=== PATIENT | female | born 1990 | race Caucasian/White ===

== ENCOUNTER 2017-03-07 17:20 | Outpatient (CLI) | payer MEDICAID ==
[~2017-03-07] VITALS: Ht 152.4 cm; Wt 81.3 kg
[~2017-03-07 17:20] MED LIST: PREN1TAB49
[2017-03-07 18:03] VITALS: Ht 152.4 cm; Wt 81.3 kg
[2017-03-07 18:04] VITALS: BP 95/45; PULSE 74; RESP 24
[2017-03-07 18:36] LABS: ADD SCAN DIFF NO
[2017-03-07 18:41] LABS: BASOPHILS % 0.3 % (0.0-2.0); EOSINOPHILS # 0.1 10^3/ul (0.0-0.5); EOSINOPHILS % 0.7 % (0.0-7.0); HEMATOCRIT 34.7 % (37.0-47.0); HEMOGLOBIN 11.8 g/dl (12.0-16.0); LYMPHOCYTES # 1.5 10^3/ul (0.8-2.9); LYMPHOCYTES % 13.1 % (15.0-51.0); MEAN CORPUSCULAR HEMOGLOBIN 28.9 pg (29.0-33.0); MEAN PLATELET VOLUME 10.6 fl (7.4-10.4); MONOCYTE # 0.4 10^3/ul (0.3-0.9); MONOCYTES % 3.9 % (0.0-11.0); NEUTROPHIL # 9.3 10^3/ul (1.6-7.5); NEUTROPHILS % 81.6 % (39.0-77.0); PLATELET COUNT 263 10^3/UL (140-415); RED BLOOD COUNT 4.08 10^6/ul (4.20-5.40); RED CELL DISTRIBUTION WIDTH 13.4 % (11.5-14.5); WHITE BLOOD COUNT 11.4 10^3/ul (4.8-10.8)
[2017-03-07 18:59] LABS: ALBUMIN 3.1 g/dl (3.3-4.9)
[2017-03-07 19:00] LABS: POTASSIUM 3.6 mmol/L (3.5-5.1)
[2017-03-07 19:02] LABS: ALBUMIN/GLOBULIN RATIO 0.88; BILIRUBIN,INDIRECT 0.1 mg/dl (0-1.1); BILIRUBIN,TOTAL 0.1 mg/dl (0.2-1.3); CALCIUM 8.3 mg/dl (8.4-10.2); CREATININE 0.39 mg/dl (0.44-1.00); TOTAL PROTEIN 6.6 g/dl (6.1-8.1)
--- NOTE | 2017-03-07 19:10 | RADRPT ---
PROCEDURE: US Abdomen Limited. CLINICAL INDICATION: Gallstones TECHNIQUE: Multiple real-time longitudinal and transverse images were acquired of the patient's [facility] abdomen and retroperitoneum utilizing a curved array transducer. COMPARISON: None FINDINGS: Pancreas: The pancreas is suboptimally visualized. Liver: The liver shows normal shape, parenchymal echogenicity and echotexture. The right hepatic lo be measures 17.8 cm craniocaudal, which is borderline enlarged. There is no definite focal lesion vi sualized in the liver. Bile ducts: The intrahepatic bile ducts are not dilated. Common bile duct measures 2.[address], within normal limits. Gallbladder: There are a few gallstones within the gallbladder neck with posterior shadowing. Ther e is no gallbladder wall thickening, pericholecystic fluid, or sonographic Jones's sign. Kidneys: The right kidney measures 12.1 cm in length. The parenchymal echogenicity and thickness ap pear within normal range. No focal lesions are visualized. No hydronephrosis. There is no ascites visualized in the right abdomen. RPTAT: ZZ IMPRESSION: Cholelithiasis with a few gallstones within the gallbladder neck. .Federica Oakes MD, Date Time Electronically viewed and signed by .Federica Oakes MD, on 03/07/2017 19:09 .T/
--- NOTE | 2017-03-07 21:00 | QN ---
Documentation Comment OB Triage- Laborist Pt is a 26yo at 24+2 presenting with c/o epigastric pain radiating to back and N/V x2 starting at 0330. Pt reports eating tamales with cheese for dinner last night. Reports normal FM, denies LOF, VB or UCs. Pt states this is her third episode of gallbladder pain during this . States pain has resolved now. O: VS 98.9 95/45 74 24 FHT: 150s, AGA [place]: acontractile Gen: well appearing, NAD Abd: soft, NTND PROCEDURE: US Abdomen Limited. CLINICAL INDICATION: Gallstones TECHNIQUE: Multiple real-time longitudinal and transverse images were acquired of the patient's right abdomen and retroperitoneum utilizing a curved array transducer. COMPARISON: None FINDINGS: Pancreas: The pancreas is suboptimally visualized. Liver: The liver shows normal shape, parenchymal echogenicity and echotexture. The right hepatic lobe measures 17.8 cm craniocaudal, which is borderline enlarged. There is no definite focal lesion visualized in the liver. Bile ducts: The intrahepatic bile ducts are not dilated. Common bile duct measures 2.5 mm in diameter, within normal limits. Gallbladder: There are a few gallstones within the gallbladder neck with posterior shadowing. There is no gallbladder wall thickening, pericholecystic fluid, or sonographic Jones's sign. Kidneys: The right kidney measures 12.1 cm in length. The parenchymal echogenicity and thickness appear within normal range. No focal lesions are visualized. No hydronephrosis. There is no ascites visualized in the right abdomen. RPTAT: ZZ IMPRESSION: Cholelithiasis with a few gallstones within the gallbladder neck. Assessment: Cholelithiasis w/o e/o acute cholecystitis Spontaneously resolved pain Mildly elevated LFTs Reassuring FWB Plan: Discussed dietary modifications, including low fat diet. Recommend pt have LFTs repeated in clinic (note given to pt to give to clinic provider with results of LFTs today and request for repeat labs) Pain, PTL and ROM precautions discussed with the patient. Pt stable for discharge home. Encourage f/up as scheduled on 03/09/17. Questions answered to patient's satisfaction. JAYDEN ALBERTS MD March 07, 2017 21:00
--- NOTE | 2017-03-07 23:52 | TRIAGE ---
OB Triage Datetime Report Generated by CPN: 03/07/2017 23:52 Datetime: 03/07/2017 21:00 Stage of : OB Triage Datetime: 03/07/2017 20:37 Labor Evaluation Frequency: 1/HR Monitor Mode: External Duration (sec)2399: 60 Quality: Mild Pattern: Normal: <= 5 Contractions in 10 Minutes Resting Tone [place]: Relaxed Heart Rate FHR Baseline Rate: 135 Monitor Mode: External US FHR Baseline Changes: No Baseline Change Variability: Moderate 6-25 bpm Accelerations: 15X15 Decelerations: None Category: Category I Datetime: 03/07/2017 20:00 Labor Evaluation Frequency: IRREGULAR Duration (sec)2399: 40-60 Heart Rate FHR Baseline Rate: 145 FHR Baseline Changes: No Baseline Change Variability: Moderate 6-25 bpm Accelerations: 15X15 Decelerations: None Category: Category II Comments: APPROPRIATE FOR GESTATIONAL AGE Datetime: 03/07/2017 19:56 Assessment Type: Ongoing Assessment Maternal Assessment Level of Consciousness: Fully Conscious DTR's/Clonus: DTRs 2+; No Clonus Headache: Denies Blurred Vision: No Respiratory Effort: Unlabored; Regular Rhythm; Equal Expansion Breath Sounds, Left: Clear and Equal Breath Sounds, Right: Clear and Equal Nausea/Vomiting: Denies RUQ Epigastric Pain: Denies Facial Edema: None Fall Risk Assessment History of Falling: (0) No Secondary Diagnosis: (0) No Ambulatory Aid: (0) Bedrest/Nurse Assist IV Therapy: (0) No Gait: (0) Normal/Bedrest/Immobile Mental Status: (0) Oriented to Own Ability Fall Score: 0 Fall Risk Score Definition: No Risk: No action required Datetime: 03/07/2017 19:27 Stage of : OB Triage Datetime: 03/07/2017 19:09 EGA: 24.3 Datetime: 03/07/2017 18:48 Labor Evaluation Frequency: IRRITABILITY Monitor Mode: External US FHR Baseline Changes: No Baseline Change Variability: Minimal - Undetectable to <=5 bpm Decelerations: None Comments: APPROPRIATE FOR GEST AGE Pain Assessment Pain Scale: 6 Pain Presence: Constant Pain Type: Ache Pain Assessment Comments: PAIN IN UPPER RIGHT QUADRANT Vaginal Exam Membrane Status: Intact Datetime: 03/07/2017 18:12 Time of Arrival: 03/07/2017 17:15 Arrived By: Ambulatory Arrived From: Home Chief Complaint: RIGHT UPPER QUADRANT PAIN AND VOMITING Movement: Present Contractions: Denies/Absent Rupture of Membranes: Denies Vaginal Bleeding: None Vaginal Discharge: Denies Recent Sexual Intercouse: Denies Abdominal Trauma: Not Applicable Patient Complaints: Other Time Provider Notified: 03/07/2017 17:30 Provider Notified: DR LOCKWOOD Initial Plan: EF,,CALL DR LOCKWOOD Datetime: 03/07/2017 18:07 Maternal Assessment Level of Consciousness: Fully Conscious DTR's/Clonus: DTRs 2+ Headache: Denies Blurred Vision: No Nausea/Vomiting: Denies RUQ Epigastric Pain: Denies Facial Edema: None Heart Rate FHR Baseline Rate: 150 Monitor Mode: External US FHR Baseline Changes: No Baseline Change Variability: Moderate 6-25 bpm Decelerations: None Comments: APPROPRIATE FOR GEST AGE Pain Assessment Pain Scale: 8 Pain Presence: Constant Pain Type: Pressure Pain Assessment Comments: RIGHT UPPER QUADRANT PAIN Vaginal Exam Membrane Status: Intact
== END 2017-03-07 21:00 | disposition home or self-care (01) ==
LOC: OBT 17:20 → L-D 17:25 → OBT 21:00
PROVIDERS: ATTEND Obstetrics & Gynecology
DX: O26.612 Liver and biliary tract disorders in pregnancy, second trimester (principal); Z3A.24 24 weeks gestation of pregnancy
CPT/HCPCS: 76705; 80053; 82150; 83690; 85025

== ENCOUNTER 2017-03-29 06:00 | Outpatient (CLI) | payer MEDICAID ==
[~2017-03-29] VITALS: Ht 157.5 cm; Wt 78.2 kg
[2017-03-29 06:32] VITALS: Ht 157.5 cm; Wt 78.2 kg
[2017-03-29 06:34] VITALS: BP 93/50; PULSE 68; RESP 18
[2017-03-29] MEDS ORDERED: ONDANSETRON 4 MG INJ IV STA (06:45)
[2017-03-29] MEDS ORDERED: HYDROmorphONE 1 MG/ML SYG IV PRN (07:00)
[2017-03-29] MEDS ORDERED: TERBUTALINE 1 MG/ML INJ SC PRN (07:00)
[2017-03-29] MEDS ORDERED: LACTATED RINGER'S 1,000 ML IV ONE (07:00)
--- NOTE | 2017-03-29 07:57 | RADRPT ---
PROCEDURE: US Abdomen (right upper quadrant). CLINICAL INDICATION: Abdominal pain. TECHNIQUE: Multiple real-time longitudinal and transverse images of the right upper quadrant of th e abdomen were acquired utilizing a curved array transducer. Images were reviewed on a high-resoluti on PACS workstation. COMPARISON: None FINDINGS: The liver is normal in size and demonstrates normal echogenicity. No focal intrahepatic mass is id entified. The gallbladder contains stones. There is no pericholecystic fluid or gallbladder wall t hickening. No intra or extrahepatic biliary dilatation is seen. The common bile duct measures 4.8 m m in maximal dimension. The portal and hepatic veins are patent demonstrating normal directional litzy w. The visualized portions of the pancreas are unremarkable with obscuration of the tail of the panc reas. No free fluid is identified. The right kidney measures cm in length. There is normal echogenicity within the right kidney. The re is no perinephric fluid collection. No hydronephrosis, mass, or calculus is seen. IMPRESSION: Cholelithiasis. Otherwise, unremarkable right upper quadrant ultrasound. RPTAT: HH .Basilia Romero MD, MD Date Time Electronically viewed and signed by .Basilia Romero MD, on 03/29/2017 07:56 .G/
[2017-03-29 08:33] LABS: ADD SCAN DIFF NO
[2017-03-29 08:36] LABS: BASOPHILS % 0.2 % (0.0-2.0); EOSINOPHILS % 0.2 % (0.0-7.0); HEMATOCRIT 34.3 % (37.0-47.0); HEMOGLOBIN 11.7 g/dl (12.0-16.0); LYMPHOCYTES # 1.3 10^3/ul (0.8-2.9); LYMPHOCYTES % 9.6 % (15.0-51.0); MEAN CORPUSCULAR HEMOGLOBIN 28.7 pg (29.0-33.0); MEAN CORPUSCULAR HGB CONC 34.1 g/dl (32.0-37.0); MEAN CORPUSCULAR VOLUME 84.3 fl (82.0-101.0); MEAN PLATELET VOLUME 10.8 fl (7.4-10.4); MONOCYTE # 0.5 10^3/ul (0.3-0.9); NEUTROPHIL # 11.2 10^3/ul (1.6-7.5); NEUTROPHILS % 85.3 % (39.0-77.0); PLATELET COUNT 255 10^3/UL (140-415); RED BLOOD COUNT 4.07 10^6/ul (4.20-5.40); RED CELL DISTRIBUTION WIDTH 13.2 % (11.5-14.5); WHITE BLOOD COUNT 13.1 10^3/ul (4.8-10.8)
[2017-03-29 08:59] LABS: ALBUMIN 3.7 g/dl (3.3-4.9); ALBUMIN/GLOBULIN RATIO 1.32; BILIRUBIN,INDIRECT 0.2 mg/dl (0-1.1); BILIRUBIN,TOTAL 0.2 mg/dl (0.2-1.3); CALCIUM 8.5 mg/dl (8.4-10.2); CREATININE 0.42 mg/dl (0.44-1.00); TOTAL PROTEIN 6.5 g/dl (6.1-8.1)
[2017-03-29 09:44] LABS: URINE BLOOD (Dip) POC Negative (NEGATIVE)
--- NOTE | 2017-03-29 12:21 | TRIAGE ---
OB Triage Datetime Report Generated by CPN: 03/29/2017 12:21 Datetime: 03/29/2017 11:39 Labor Evaluation Frequency: 0 Monitor Mode: External Pattern: Normal: <= 5 Contractions in 10 Minutes Resting Tone [place]: Non Relaxed Heart Rate FHR Baseline Rate: 135 Monitor Mode: External US FHR Baseline Changes: No Baseline Change Variability: Moderate 6-25 bpm Accelerations: 15X15 Decelerations: Variable Comments: NORMAL FOR GESTATIONAL AGE Pain Assessment Pain Scale: 0 Pain Presence: None/Denies Pain Type: N/A Datetime: 03/29/2017 10:16 Comments: MOVEMENT Datetime: 03/29/2017 10:14 Comments: MOVEMENT Datetime: 03/29/2017 10:10 Comments: MOVEMENT Datetime: 03/29/2017 10:07 Monitor Mode: External US Comments: MOVEMENT Datetime: 03/29/2017 10:06 Comments: MOVEMENT Datetime: 03/29/2017 10:02 Labor Evaluation Frequency: x4 Monitor Mode: External Duration (sec)2399: 40-60 Quality: Mild Resting Tone [place]: Relaxed Heart Rate FHR Baseline Rate: 135 FHR Baseline Changes: No Baseline Change Variability: Moderate 6-25 bpm Accelerations: 15X15 Decelerations: Variable Comments: NORMAL FOR EGA Datetime: 03/29/2017 09:21 Pain Assessment Pain Scale: 2 Pain Presence: Constant Pain Type: Stabbing; Pressure Pain Location: Abdomen; Back Pain Assessment Comments: PT REPORTS PAIN IS DECREASING Datetime: 03/29/2017 09:01 Labor Evaluation Frequency: 2-13 Monitor Mode: External Duration (sec)2399: 40-60 Quality: Moderate Resting Tone [place]: Relaxed Contraction Comments: OCC IRRITABILITIES Heart Rate FHR Baseline Rate: 135 Monitor Mode: External US FHR Baseline Changes: No Baseline Change Variability: Moderate 6-25 bpm Accelerations: 15X15 Decelerations: None Category: Category I Datetime: 03/29/2017 08:55 Pain Assessment Pain Scale: 3 Pain Presence: Intermittent Pain Type: Stabbing; Pressure Pain Location: Abdomen Datetime: 03/29/2017 08:03 Assessment Type: Triage Datetime: 03/29/2017 08:01 Labor Evaluation Frequency: x3 Monitor Mode: External Duration (sec)2399: 60 Quality: Mild Resting Tone [place]: Relaxed Heart Rate FHR Baseline Rate: 135 Monitor Mode: External US FHR Baseline Changes: No Baseline Change Variability: Moderate 6-25 bpm Accelerations: 15X15 Decelerations: None Datetime: 03/29/2017 07:35 Monitor Mode: External Contraction Comments: TOCO REAPPLIED POST ULTRASOUND Monitor Mode: External US Comments: FHT MONITOR REAPPLIED POST ULTRASOUND Datetime: 03/29/2017 06:16 Time of Arrival: 03/29/2017 05:57 EGA: 27.4 Arrived By: Wheelchair Arrived From: Home Chief Complaint: Upper abominal pain Movement: Present Contractions: Denies/Absent Rupture of Membranes: Denies Vaginal Bleeding: None Vaginal Discharge: Denies Recent Sexual Intercouse: Denies Abdominal Trauma: Not Applicable Patient Complaints: Back Pain; Nausea; Vomiting; Other Additional Patient Complaints: Back pain and nausea and vomiting Time Provider Notified: 03/29/2017 06:36 Provider Notified: Dr. Hairston Initial Plan: EFM Datetime: 03/29/2017 06:15 Stage of : OB Triage Assessment Type: Triage Maternal Assessment Level of Consciousness: Fully Conscious DTR's/Clonus: DTRs 2+; No Clonus Headache: Denies Blurred Vision: No Respiratory Effort: Unlabored; Regular Rhythm; Equal Expansion Breath Sounds, Left: Clear and Equal Breath Sounds, Right: Clear and Equal Nausea/Vomiting: Present RUQ Epigastric Pain: Denies Lower Extremities Edema: None Degree: None Upper Extremities Edema: None Degree: None Facial Edema: None Temperature Route: Oral Fall Risk Assessment History of Falling: (0) No Secondary Diagnosis: (0) No Ambulatory Aid: (0) Bedrest/Nurse Assist IV Therapy: (0) No Gait: (0) Normal/Bedrest/Immobile Mental Status: (0) Oriented to Own Ability Fall Score: 0 Fall Risk Score Definition: No Risk: No action required Pain Assessment Pain Scale: 9 Pain Presence: Constant Pain Type: Sharp Pain Location: Abdomen; Back (Annotations: Upper back and upper abdomen) Datetime: 03/29/2017 06:12 Monitor Mode: External (Annotations: Applied) Monitor Mode: External US (Annotations: Applied) Datetime: 03/07/2017 19:56 Fall Score: 0 Fall Risk Score Definition: No Risk: No action required Datetime: 03/07/2017 19:09 EGA: 24.3
--- NOTE | 2017-03-29 12:34 | CONS ---
Date/Time of Note Date/Time of Note DATE: 03/29/17 TIME: 12:22 Consultation Date/Type/Reason Admit Date/Time March 29, 2017 OB triage consult Reason for Consultation This patient is a 26 years old 2 para 1 with estimated date of confinement of June 24, 2017 which makes her 27 weeks and 4 days today She has history of gallstone. Came into triage area complaining of abdominal pain and possible contractions Her past delivery was spontaneous vaginal on her examination: her general vital signs were within normal: blood pressure of 93/50, pulse rate 60, respiration 18, temperature 98.2. Laboratory Tests Test 03/29/17 08:03 03/29/17 09:48 White Blood Count 13.110^3/ul Red Blood Count 4.0710^6/ul Hemoglobin 11.7g/dl Hematocrit 34.3% Mean Corpuscular Volume 84.3fl Mean Corpuscular Hemoglobin 28.7pg Mean Corpuscular Hemoglobin Concent 34.1g/dl Red Cell Distribution Width 13.2% Platelet Count 42648^3/UL Mean Platelet Volume 10.8fl Neutrophils % 85.3% Lymphocytes % 9.6% Monocytes % 4.0% Eosinophils % 0.2% Basophils % 0.2% Nucleated Red Blood Cells % 0.0/100WBC Neutrophils # 11.210^3/ul Lymphocytes # 1.310^3/ul Monocytes # 0.510^3/ul Eosinophils # 0.010^3/ul Basophils # 0.010^3/ul Nucleated Red Blood Cells # 0.010^3/ul Sodium Level 135mmol/L Potassium Level 4.0mmol/L Chloride Level 106mmol/L Carbon Dioxide Level 23mmol/L Anion Gap 10 Blood Urea Nitrogen 6mg/dl Creatinine 0.42mg/dl Glucose Level 114mg/dl Calcium Level 8.5mg/dl Total Bilirubin 0.2mg/dl Direct Bilirubin 0.00mg/dl Indirect Bilirubin 0.2mg/dl Aspartate Amino Transf (AST/SGOT) 64IU/L Alanine Aminotransferase (ALT/SGPT) 36IU/L Alkaline Phosphatase 98IU/L Total Protein 6.5g/dl Albumin 3.7g/dl Globulin 2.80g/dl Albumin/Globulin Ratio 1.32 Bedside Urine pH (LAB) 8.5 Bedside Urine Protein (LAB) 1+ Bedside Urine Glucose (UA) Negative Bedside Urine Ketones (LAB) Negative Bedside Urine Blood Negative Bedside Urine Nitrite (LAB) Negative Bedside Urine Leukocyte Esterase (L Negative Current Medications Medications (Trade) Dose Ordered Sig/Alan Route PRN Reason Start Time Stop Time Status Last Admin Dose Admin Terbutaline Sulfate (Brethine) 0.25 mg PRN PRN SC Contractions 03/29/17 07:00 03/29/17 10:08 0.25 MG Hydromorphone HCl (Dilaudid) 0.2 mg PRN PRN IV PAIN 03/29/17 07:00 Ondansetron HCl 4 mg 4 mg ONCE STAT IV 03/29/17 06:45 03/29/17 06:58 DC 03/29/17 08:07 4 MG Lactated Ringer's (Lr) 1,000 ml @ 1,000 mls/hr Q1H ONCE IV 03/29/17 07:00 03/29/17 07:59 DC 03/29/17 07:49 1,000 MLS/HR Constitutional: other (No upper or right or left abdominal tenderness), No chills, No diaphoresis, No disoriented, No febrile, No improved, No no complaints, No poor po, No requiring IVF, No requiring O2 Eyes: No discharge, No no complaints, No other, No pain, No redness, No visual change ENT: No bleeding, No congestion, No discharge, No dysphagia, No no complaints, No other, No pain, No sore throat Respiratory: No cough, No no complaints, No other, No pain, No pleuritic pain, No shortness of breath, No sputum, No wheezing Cardiovascular: No chest pain, No edema, No lightheadedness, No no complaints, No orthopenea, No other, No palpitations, No paroxysmal nocturnal dyspnea Gastrointestinal: other (No nausea or vomiting), No blood, No constipation, No decreased appetite, No diarrhea, No flatus, No nausea, No no complaints, No pain, No passing stool, No vomiting Genitourinary: other (No CVA tenderness no dysuria), No bleeding, No discharge, No dysuria, No flank pain, No hematuria, No no complaints Musculoskeletal: No back pain, No bone/joint pain, No neck pain, No no complaints, No other, No restricted range of motion, No swelling Skin: No bruising, No erythema, No laceration, No no complaints, No other, No pruritis, No rash, No skin lesions Neurologic: No confusion, No dizziness, No focal-weakness, No headache, No no complaints, No other, No seizure, No syncope Endocrine: No dry skin, No no complaints, No other, No polydypsia, No polyuria , No temp intolerance Additional Comments On laboratory studies; her urinalysis was normal except for 1+ protein. The liver function tests and electrolytes were basically normal except for some what elevated AST of 64 Electrolytes were within normal. Her CBC was normal with exception for slight anemia; hemoglobin is 11.7 hematocrit 34.3 WBC was 13.1 . Abdominal ultrasound study ;the liver and portion of the pancreas that was visible were normal no focal intrahepatic mass was identified the gallbladder contains stones. No pericolic cystic fluid or gallbladder wall thickening the kidneys were normal Due to the fact that the patient is complaining of nausea she was given Zofran and for her pain she received Dilaudid 0.2 mg she was having contractions so IV hydration was given as well as terbutaline .In an hour the contractions came under control,and she no longer had pain . Finally patient was discharged home with instruction to rest at home and to return to the clinic in 1 week. Social History Smoking Status: Never smoker Exam/Review of Systems Vital Signs Vitals Vital Signs Date Time Temp Pulse Resp B/P Pulse Ox O2 Delivery O2 Flow Rate FiO2 03/29/17 06:34 98.2 68 18 93/50 Room Air Results Result Diagram: 03/29/17 0803 03/29/17 0803 Results 24 hrs Laboratory Tests Test 03/29/17 08:03 03/29/17 09:48 White Blood Count 13.1 H Red Blood Count 4.07 L Hemoglobin 11.7 L Hematocrit 34.3 L Mean Corpuscular Volume 84.3 Mean Corpuscular Hemoglobin 28.7 L Mean Corpuscular Hemoglobin Concent 34.1 Red Cell Distribution Width 13.2 Platelet Count 255 Mean Platelet Volume 10.8 H Neutrophils % 85.3 H Lymphocytes % 9.6 L Monocytes % 4.0 Eosinophils % 0.2 Basophils % 0.2 Nucleated Red Blood Cells % 0.0 Neutrophils # 11.2 H Lymphocytes # 1.3 Monocytes # 0.5 Eosinophils # 0.0 Basophils # 0.0 Nucleated Red Blood Cells # 0.0 Sodium Level 135 Potassium Level 4.0 Chloride Level 106 Carbon Dioxide Level 23 Anion Gap 10 Blood Urea Nitrogen 6 L Creatinine 0.42 L Glucose Level 114 Calcium Level 8.5 Total Bilirubin 0.2 Direct Bilirubin 0.00 Indirect Bilirubin 0.2 Aspartate Amino Transf (AST/SGOT) 64 H Alanine Aminotransferase (ALT/SGPT) 36 Alkaline Phosphatase 98 Total Protein 6.5 Albumin 3.7 Globulin 2.80 Albumin/Globulin Ratio 1.32 Bedside Urine pH (LAB) 8.5 Bedside Urine Protein (LAB) 1+ H Bedside Urine Glucose (UA) Negative Bedside Urine Ketones (LAB) Negative Bedside Urine Blood Negative Bedside Urine Nitrite (LAB) Negative Bedside Urine Leukocyte Esterase (L Negative Medications Medications Current Medications Terbutaline Sulfate (Brethine) 0.25 mg PRN PRN SC Contractions Last administered on 03/29/17t 10:08; Admin Dose 0.25 MG; Start 03/29/17 at 07:00 Hydromorphone HCl (Dilaudid) 0.2 mg PRN PRN IV PAIN; Start 03/29/17 at 07:00 DARIAN MCCARTHY MD Mar 29, 2017 12:34
== END 2017-03-29 11:55 | disposition home or self-care (01) ==
LOC: OBT 06:00 → L-D 06:00 → OBT 11:55
PROVIDERS: ATTEND Obstetrics & Gynecology
DX: O26.892 Other specified pregnancy related conditions, second trimester (principal); R10.9 Unspecified abdominal pain; Z87.19 Personal history of other diseases of the digestive system
CPT/HCPCS: 76705; 80053; 81003; 85025; J2405; J3105; J7120; J1170

== ENCOUNTER 2017-03-29 23:27 | Outpatient (CLI) | payer MEDICAID ==
[~2017-03-29] VITALS: Ht 152.4 cm; Wt 82.0 kg
[2017-03-30 00:05] VITALS: Ht 152.4 cm; Wt 82.0 kg
[2017-03-30 00:06] VITALS: BP 93/51; PULSE 78; RESP 18
[2017-03-30] MEDS ORDERED: LACTATED RINGER'S 1,000 ML IV SCH (00:39)
[2017-03-30] MEDS ORDERED: ONDANSETRON 4 MG INJ IV PRN (01:00)
--- NOTE | 2017-03-30 02:50 | PN ---
Triage Information Date/Time 03/29/17 at 23: 45 Weeks of Gestation 27 5/7 weeks : 2 Para: 1 Diabetes: none Hypertention: none Additional information 26 Year-old [id number] SIUP at 27 5/7 weeks presents with a chief complaint of vomiting x5, she was seen in triage today, received IVF and zofran, then discharge home in stable condition. She has been receiving her care with Dr. Patiño. She states good movement. She denies shortness of breath, chest pain, headache, visual changes, vaginal bleeding or LOF. Physical Exam: General: Patient appears well, alert and oriented, NAD, appropriate mood and affect ABD: gravid, soft, non-tender. Back: No CVA tenderness (B/L) LE: No clubbing, cyanosis, edema, thigh or calf tenderness bilaterally FHT: 135 bpm , moderate variability with acceleration, no deceleration-category I Contractions: None Objective Vital Signs Date Time Temp Pulse Resp B/P Pulse Ox O2 Delivery O2 Flow Rate FiO2 03/30/17 00:06 99.0 78 18 93/51 Heart Rate: 140's Contractions: None Results/Medications Results 24 hrs Nml CBC, CMP Medications Current Medications Lactated Ringer's (Lr) 1,000 ml @ 125 mls/hr Q8H IV Last administered on 01:06; Admin Dose 125 MLS/HR; Start 03/30/17 at 00:39 Ondansetron HCl (Zofran Inj) 4 mg ONCE PRN IV NAUSEA AND/OR VOMITING Last administered on 03/30/17 01:09; Admin Dose 4 MG; Start 03/30/17 at 01:00; Stop 03/30/17 at 12:00 Assessment/Plan 26 Year-old [id number] SIUP at 27 5/7 weeks with vomiting. - FHR: No sign of metabolic acidosis- Category I - Continuous EFM, toco - Contractions: None. - Reactive NST - She received IVF, zofran, felt much better. No further vomiting, tolerated the clear diet - Symptoms and sign of labor, preeclampsia, kick count discussed with patient, she voiced understanding. All of her questions answered. - Patient was discharged home in stable condition with the appropriate discharge instructions provided. I would like patient to have close follow-up with her primary physician or outpatient clinic in 1-2 days or return to the ER for worsening symptoms or any other urgent concerns. DARIUS LAKE Mar 30, 2017 02:50
--- NOTE | 2017-03-30 06:42 | TRIAGE ---
OB Triage Datetime Report Generated by CPN: 03/30/2017 06:42 Datetime: 03/30/2017 02:00 Labor Evaluation Frequency: 0 Monitor Mode: External Heart Rate FHR Baseline Rate: 135 Monitor Mode: External US FHR Baseline Changes: No Baseline Change Variability: Moderate 6-25 bpm Accelerations: 15X15 Decelerations: None Category: Category I Datetime: 03/30/2017 01:30 Accelerations: 15X15 Category: Category I Datetime: 03/30/2017 01:17 Heart Rate FHR Baseline Rate: 145 FHR Baseline Changes: No Baseline Change Variability: Moderate 6-25 bpm Decelerations: None Datetime: 03/30/2017 00:20 Labor Evaluation Frequency: 0 Monitor Mode: External Heart Rate FHR Baseline Rate: 145 Monitor Mode: External US FHR Baseline Changes: No Baseline Change Variability: Moderate 6-25 bpm Accelerations: 15X15 Decelerations: None Category: Category I Datetime: 03/29/2017 23:51 Stage of : OB Triage Assessment Type: Triage Time of Arrival: 03/29/2017 23:20 EGA: 27.4 Arrived By: Wheelchair Arrived From: Home Chief Complaint: EPIGASTRIC PAIN 2139 Movement: Present Rupture of Membranes: Denies Vaginal Bleeding: None Vaginal Discharge: Denies Recent Sexual Intercouse: Denies Abdominal Trauma: Not Applicable Patient Complaints: None Provider Notified: DR LAKE Initial Plan: CALL MD, EFM Maternal Assessment Level of Consciousness: Fully Conscious DTR's/Clonus: DTRs 2+; No Clonus Headache: Denies Blurred Vision: No Respiratory Effort: Unlabored; Regular Rhythm; Equal Expansion Breath Sounds, Left: Clear and Equal Breath Sounds, Right: Clear and Equal Nausea/Vomiting: Denies RUQ Epigastric Pain: Denies Lower Extremities Edema: None Degree: None Upper Extremities Edema: None Degree: None Facial Edema: None Temperature Route: Oral Fall Risk Assessment History of Falling: (0) No Secondary Diagnosis: (0) No Ambulatory Aid: (0) Bedrest/Nurse Assist IV Therapy: (0) No Gait: (0) Normal/Bedrest/Immobile Mental Status: (0) Oriented to Own Ability Fall Score: 0 Fall Risk Score Definition: No Risk: No action required Monitor Mode: External Monitor Mode: External US Pain Assessment Pain Scale: 10 Pain Presence: Intermittent Pain Type: Burning Pain Location: Back; Sternum Datetime: 03/29/2017 06:16 EGA: 27.4 Datetime: 03/29/2017 06:15 Fall Score: 0 Fall Risk Score Definition: No Risk: No action required Datetime: 03/07/2017 19:56 Fall Score: 0 Fall Risk Score Definition: No Risk: No action required Datetime: 03/07/2017 19:09 EGA: 24.3
== END 2017-03-30 02:12 | disposition home or self-care (01) ==
LOC: L-D 23:27 → OBT 23:27
PROVIDERS: ATTEND Obstetrics & Gynecology
DX: O21.2 Late vomiting of pregnancy (principal); Z3A.27 27 weeks gestation of pregnancy
CPT/HCPCS: 36415; J2405; J7120; Z7500; G0463

== ENCOUNTER 2017-04-14 03:12 | Outpatient (CLI) | payer MEDICAID ==
[~2017-04-14] VITALS: Ht 151.1 cm; Wt 82.6 kg
[2017-04-14 03:33] VITALS: BP 104/65; PULSE 18; RESP 18; Ht 151.1 cm; Wt 82.6 kg
[2017-04-14] MEDS ORDERED: LACTATED RINGER'S 1,000 ML IV ONE (04:30)
[2017-04-14] MEDS ORDERED: TERBUTALINE 1 ML ONE (04:34)
[2017-04-14] MEDS: TERBUTALINE 1 MG/ML INJ SC PRN ×2 (04:36→05:59)
--- NOTE | 2017-04-14 05:20 | RADRPT ---
PROCEDURE: Biophysical profile. CLINICAL INDICATION: Pelvic pain. TECHNIQUE: Multiple sonographic images of the pelvis were obtained with transabdominal technique. Endovaginal evaluation of the cervix was also performed. COMPARISON: No prior studies are available for comparison. FINDINGS: There is a single living intrauterine gestation with the fetus in a variable and vertex position. T he placenta is anterior in location, grade 1. heart tones of 150 beats per minute are identifi ed. There is normal amniotic fluid volume with an LAWSON of 18.1 cm. The cervix is closed measuring 4. 2 cm. breathing movements = 2 Gross body movements = 2 tone = 2 Qualitative AFV = 2 IMPRESSION: Biophysical profile 8 out of 8. .Lester Anderson MD, Date Time Electronically viewed and signed by .Lester Anderson MD, on 04/14/2017 05:20 .T/
[2017-04-14] MEDS ORDERED: LACTATED RINGER'S 1,000 ML IV SCH (05:30)
[2017-04-14 06:16] LABS: ADD UMIC YES; UR AMORPHOUS CRYSTAL FEW /HPF (NONE SEEN); UR ASCORBIC ACID NEGATIVE (NEGATIVE); UR BACTERIA FEW /HPF (NONE SEEN); UR BILIRUBIN (Dip) NEGATIVE (NEGATIVE); UR BLOOD (Dip) NEGATIVE (NEGATIVE); UR CLARITY TURBID (CLEAR); UR COLOR YELLOW (YELLOW); UR GLUCOSE (Dip) NEGATIVE (NEGATIVE); UR KETONES (Dip) NEGATIVE (NEGATIVE); UR LEUKOCYTE ESTERASE (Dip) TRACE Leu/ul (NEGATIVE); UR MUCUS FEW /HPF (NONE SEEN); UR NITRITE (Dip) NEGATIVE (NEGATIVE); UR RBC 2 /HPF (0-5); UR SPECIFIC GRAVITY (Dip) 1.017 (1.003-1.030); UR SQUAMOUS EPITHELIAL CELL FEW /HPF (FEW); UR TOTAL PROTEIN (Dip) NEGATIVE (NEGATIVE); UR UROBILINOGEN (Dip) NEGATIVE (NEGATIVE)
--- NOTE | 2017-04-14 06:27 | PN ---
Triage Information Date/Time Weeks of Gestation 29+ : 2 Para: 1 Diabetes: none Objective Vital Signs Date Time Temp Pulse Resp B/P Pulse Ox O2 Delivery O2 Flow Rate FiO2 04/14/17 03:33 98.7 18 18 104/65 Room Air Intake and Output 04/13/17 04/13/17 04/14/17 15:00 23:00 07:00 Intake Total 1000 ml Output Total 750 ml Balance 250 ml Heart Rate: 140's Exam CX wnl PAIN IMPROVED ctxS SUBSIDE NO COMPLAINS AT THIS TIME +FM -VB NO LOF Results/Medications Results 24 hrs Laboratory Tests Test 04/14/17 03:17 Urine Color YELLOW Urine Clarity TURBID A Urine pH 8.0 Urine Specific [place] 1.017 Urine Ketones NEGATIVE Urine Nitrite NEGATIVE Urine Bilirubin NEGATIVE Urine Urobilinogen NEGATIVE Urine Leukocyte Esterase TRACE A Urine Microscopic RBC 2 Urine Microscopic WBC 10 H Urine Squamous Epithelial Cells FEW Urine Amorphous Crystals FEW A Urine Bacteria FEW A Urine Mucus FEW A Urine Hemoglobin NEGATIVE Urine Glucose NEGATIVE Urine Total Protein NEGATIVE Medications Current Medications Lactated Ringer's (Lr) 1,000 ml @ 125 mls/hr Q8H IV Last administered on 05:59; Admin Dose 125 MLS/HR; Start 04/14/17 at 05:30 Terbutaline Sulfate (Brethine) 0.25 mg Q30MIN PRN SC UCS Last administered on 05:59; Admin Dose 0.25 MG; Start 04/14/17 at 04:30 Assessment/Plan discharged with precautions RTC in 2 days for nst CASTILLO Zuñiga M.D. Apr 14, 2017 06:27
--- NOTE | 2017-04-14 07:08 | TRIAGE ---
OB Triage Datetime Report Generated by CPN: 04/14/2017 07:08 Datetime: 04/14/2017 06:25 Stage of : OB Triage Datetime: 04/14/2017 06:22 Stage of : OB Triage Labor Evaluation Frequency: X3 Monitor Mode: External Duration (sec)2399: 40-50 Quality: Mild Resting Tone [place]: Relaxed Heart Rate FHR Baseline Rate: 140 Monitor Mode: External US Variability: Moderate 6-25 bpm Accelerations: 15X15 Decelerations: None Category: Category I Datetime: 04/14/2017 06:17 Monitor Mode: External US Datetime: 04/14/2017 06:12 Stage of : OB Triage Monitor Mode: External Monitor Mode: External US Datetime: 04/14/2017 05:30 Labor Evaluation Frequency: 0 Monitor Mode: External Resting Tone [place]: Relaxed Heart Rate FHR Baseline Rate: 135 Variability: Moderate 6-25 bpm Accelerations: 15X15 Comments: Appropriate for ga Pain Assessment Pain Scale: 0 Pain Presence: None/Denies Pain Type: N/A Datetime: 04/14/2017 04:54 Stage of : OB Triage Datetime: 04/14/2017 04:46 Stage of : OB Triage Datetime: 04/14/2017 04:30 Stage of : OB Triage Labor Evaluation Frequency: 2-9 Monitor Mode: External Duration (sec)2399: 40-50 Quality: Mild Resting Tone [place]: Relaxed Heart Rate FHR Baseline Rate: 135 Monitor Mode: External US Variability: Moderate 6-25 bpm Accelerations: 15X15 Decelerations: None Category: Category I Pain Assessment Pain Scale: 5 Pain Presence: Constant Pain Type: Sharp Pain Goal: 0 Pain Assessment Comments: URQ. Pt has hx of gallstones Datetime: 04/14/2017 04:23 Stage of : OB Triage Datetime: 04/14/2017 04:08 Stage of : OB Triage Datetime: 04/14/2017 03:51 Stage of : OB Triage Datetime: 04/14/2017 03:26 Stage of : OB Triage Datetime: 04/14/2017 03:24 Time of Arrival: 04/14/2017 03:10 EGA: 29.6 Arrived By: Wheelchair Arrived From: Home Chief Complaint: PT C/O RUQ AND BACK PAIN. Movement: Decreased Rupture of Membranes: Denies Vaginal Discharge: Denies Recent Sexual Intercouse: Denies Abdominal Trauma: Not Applicable Patient Complaints: Back Pain Additional Patient Complaints: Pt with hx of gallstones states she has same pain as when she was f irst diagnosed with gallstones, and states she ate fried chicken and cake last night. Initial Plan: VS, EFM, UA, BPP, CL, IV HYDRATION, TERB, LABORIST TO EVALFOR DC Datetime: 04/14/2017 03:20 Stage of : OB Triage Maternal Assessment Level of Consciousness: Fully Conscious DTR's/Clonus: DTRs 2+; No Clonus Headache: Denies Blurred Vision: No Respiratory Effort: Unlabored; Regular Rhythm; Equal Expansion Breath Sounds, Left: Clear and Equal Breath Sounds, Right: Clear and Equal Nausea/Vomiting: Denies RUQ Epigastric Pain: Denies Lower Extremities Edema: None Upper Extremities Edema: None Facial Edema: None Temperature Route: Oral Fall Risk Assessment History of Falling: (0) No Secondary Diagnosis: (0) No Ambulatory Aid: (0) Bedrest/Nurse Assist IV Therapy: (0) No Gait: (0) Normal/Bedrest/Immobile Mental Status: (0) Oriented to Own Ability Fall Score: 0 Fall Risk Score Definition: No Risk: No action required Labor Evaluation Frequency: X2 Monitor Mode: External Duration (sec)2399: 50-60 Quality: Mild Heart Rate FHR Baseline Rate: 135 Monitor Mode: External US Variability: Moderate 6-25 bpm Accelerations: 15X15 Decelerations: None Pain Assessment Pain Scale: 10 Pain Presence: Constant Pain Type: Pressure Pain Location: Abdomen Pain Goal: 3 Datetime: 04/14/2017 03:17 Monitor Mode: External Contraction Comments: APPLIED Monitor Mode: External US Comments: APPLIED Datetime: 03/29/2017 23:51 EGA: 27.4 Fall Score: 0 Fall Risk Score Definition: No Risk: No action required Datetime: 03/29/2017 06:16 EGA: 27.4 Datetime: 03/29/2017 06:15 Fall Score: 0 Fall Risk Score Definition: No Risk: No action required Datetime: 03/07/2017 19:56 Fall Score: 0 Fall Risk Score Definition: No Risk: No action required Datetime: 03/07/2017 19:09 EGA: 24.3
== END 2017-04-14 06:35 | disposition home or self-care (01) ==
LOC: OBT 03:12 → L-D 03:15 → OBT 06:35
PROVIDERS: ATTEND Obstetrics & Gynecology
DX: O26.893 Other specified pregnancy related conditions, third trimester (principal); Z3A.29 29 weeks gestation of pregnancy; R10.9 Unspecified abdominal pain
CPT/HCPCS: 36415; 76817; 76818; 81001; 96360; 96361; 96372; J3105; J7120; Z7500; G0463

== ENCOUNTER 2017-06-16 01:30 | Observation (INO) | payer MEDICAID ==
[2017-06-16] MEDS ORDERED: LACTATED RINGER'S 1,000 ML IV SCH ×2 (02:30→04:16)
--- NOTE | 2017-06-16 03:02 | RADRPT ---
PROCEDURE: Biophysical profile. CLINICAL INDICATION: Pelvic pain. TECHNIQUE: Multiple sonographic images of the pelvis were obtained with transabdominal technique. COMPARISON: 04/14/2017. FINDINGS: There is a single living intrauterine gestation with the fetus in a vertex position. The placenta i s anterior in location, grade II. heart tones of 139 beats per minute are identified. There i s normal amniotic fluid volume with an LAWSON of 10.3 cm. breathing movements = 2 Gross body movements = 2 tone = 2 Qualitative AFV = 2 IMPRESSION: Biophysical profile 8 out of 8. .Lester Anderson MD, Date Time Electronically viewed and signed by .Lester Anderson MD, on 06/16/2017 03:01 .T/
[2017-06-16] MEDS ORDERED: MINERAL OIL LIGHT 10 ML VIAL TOP ONE (04:30)
[2017-06-16] MEDS ORDERED: LIDOCAINE 1% (MPF) 30 ML INJ INJ PRN (04:30)
[2017-06-16] MEDS ORDERED: METHYLERGONOVINE 0.2 MG INJ IM PRN (04:30)
[2017-06-16] MEDS ORDERED: LACTATED RINGER'S 1,000 ML IV PRN (04:30)
[2017-06-16] MEDS ORDERED: BUTORPHANOL 2 MG INJ IV PRN (04:30)
[2017-06-16] MEDS ORDERED: IBUPROFEN 600 MG TAB PO PRN (04:30)
[2017-06-16] MEDS ORDERED: MISOPROSTOL 200 MCG TAB PR PRN (04:30)
[2017-06-16] MEDS ORDERED: OXYTOCIN 30 UNITS/LR 500 ML IV SCH ×2 (04:30)
[2017-06-16] MEDS ORDERED: OXYTOCIN 30 UNITS/LR 500 ML IV PRN (04:30)
[2017-06-16] MEDS ORDERED: CARBOPROST 250 MCG INJ IM PRN (04:30)
[2017-06-16] MEDS ORDERED: AMPICILLIN 2 GM/NS (PMX) 100 ML IV ONE (04:30)
[2017-06-16 04:34] LABS: INR 0.82; PROTIME 11.3 Sec (12.2-14.2); PT RATIO 0.9
[2017-06-16 04:35] LABS: PARTIAL THROMBOPLASTIN TIME 28.1 Sec (25.0-35.0)
[2017-06-16 05:07] LABS: BASOPHILS % 0.2 % (0.0-2.0); EOSINOPHILS # 0.3 10^3/ul (0.0-0.5); EOSINOPHILS % 2.6 % (0.0-7.0); HEMATOCRIT 32.7 % (37.0-47.0); LYMPHOCYTES # 2.3 10^3/ul (0.8-2.9); LYMPHOCYTES % 17.7 % (15.0-51.0); MEAN CORPUSCULAR HEMOGLOBIN 27.2 pg (29.0-33.0); MEAN CORPUSCULAR HGB CONC 33.6 g/dl (32.0-37.0); MEAN CORPUSCULAR VOLUME 80.9 fl (82.0-101.0); MEAN PLATELET VOLUME 11.4 fl (7.4-10.4); MONOCYTE # 0.6 10^3/ul (0.3-0.9); MONOCYTES % 4.3 % (0.0-11.0); NEUTROPHILS % 74.5 % (39.0-77.0); PLATELET COUNT 220 10^3/UL (140-415); RED BLOOD COUNT 4.04 10^6/ul (4.20-5.40); RED CELL DISTRIBUTION WIDTH 14.6 % (11.5-14.5); WHITE BLOOD COUNT 12.8 10^3/ul (4.8-10.8)
--- NOTE | 2017-06-16 05:53 | HP ---
Date/Time of Note Date/Time of Note DATE: 06/16/17 TIME: 05:42 OB - History Hx of Present Free Text/Dictation 26y.o at 38w6d with c/o uterine contractions q2-7min apart, with questionable leaks , c/o pain 8/10 VE closed /long /high BPP 8/8 LAWSON 10.3 oral hydration and IV hydration didn't relieve pain admit for augmentation to deliver. record is not available at present ampicillin started for unknown GBS coverage. Chief Complaint: uterine contractions Estimated Due Date: Jun 24, 2017 : 2 Para: 1 Spontaneous : 0 Therapeutic : 0 Care: Other Ultrasounds: Other Obstetrical Complications: None Medical Complications: None Past Family/Social History * Past Medical, Surgical, Family and Obstetric Histories reviewed from chart. Blood Type: Unknown Rubella: unknown RPR/VDRL: Unknown GBS Status: Unknown HBsAG: Unknown OB Admission Exam Physical Exam HEENT: WNL Heart: Rhythm Normal Lungs: Clear, Equal Abdomen: WNL Extremities: Normal Reflexes: Normal Cervical Dilatation: None Effacement: 0% Station: Ballot[place] Membranes: Intact Amniotic Fluid: Unevaluable Heart Rate: 140's Accelerations: Accelerations Present Decelerations: No Decelerations Varibility: Moderate Contractions on Admission: < 5 Minutes Apart Intensity: Mild Last 72 hours Lab Results CBC & BMP 06/16/17 02:30 OB Assessment/Plan Other Assessment: IUP 38w6d latent phase Plan: Other (augmentation) VIOLET LUNA MD Jun 16, 2017 05:52
[2017-06-16] MEDS ORDERED: AMPICILLIN 1 GM/NS (PMX) 50 ML IV SCH (08:30)
--- NOTE | 2017-06-16 14:01 | DS ---
Date/Time of Note Date/Time of Note DATE: 06/16/17 TIME: 13:56 Discharge Summary Admission/Discharge Info Admit Date/Time Jun 16, 2017 at 04:00 Discharge Date/Time June 16, 2017 at 1200 Discharge Diagnosis 38 weeks admitted to rule out labor no cervical changes during the course of observation patient discharged with the recommendation follow-up at the clinic he was given labor instructions voiced to return to the hospital tractions are regular and stronger, otherwise make appointment to be seen at the clinic on June 17. Patient Condition: Good Procedures Observation to rule out labor Hx of Present Illness 38 weeks admitted to rule out labor Hospital Course Satisfactory biophysical profile 05/18 bola 10.3 Home Meds No Active Prescriptions or Reported Meds Follow-up Plan Appointment clinic a.m. labor instructions given Primary Care Provider Care Physician No Primary Pending Labs Laboratory Tests Test 06/16/17 02:30 White Blood Count 12.810^3/ul (4.8-10.8) Red Blood Count 4.0410^6/ul (4.20-5.40) Hemoglobin 11.0g/dl (12.0-16.0) Hematocrit 32.7% (37.0-47.0) Mean Corpuscular Volume 80.9fl (82.0-101.0) Mean Corpuscular Hemoglobin 27.2pg (29.0-33.0) Mean Corpuscular Hemoglobin Concent 33.6g/dl (32.0-37.0) Red Cell Distribution Width 14.6% (11.5-14.5) Platelet Count 79918^3/UL (140-415) Mean Platelet Volume 11.4fl (7.4-10.4) Neutrophils % 74.5% (39.0-77.0) Lymphocytes % 17.7% (15.0-51.0) Monocytes % 4.3% (0.0-11.0) Eosinophils % 2.6% (0.0-7.0) Basophils % 0.2% (0.0-2.0) Nucleated Red Blood Cells % 0.0/100WBC (0.0-0.0) Neutrophils # (Manual) 9.510^3/ul (1.7-7.5) Lymphocytes # 2.310^3/ul (0.8-2.9) Monocytes # 0.610^3/ul (0.3-0.9) Eosinophils # 0.310^3/ul (0.0-0.5) Basophils # 0.010^3/ul (0.0-0.1) Nucleated Red Blood Cells # 0.010^3/ul (0.0-0.0) Prothrombin Time 11.3Sec (12.2-14.2) Prothrombin Time Ratio 0.9 INR International Normalized Ratio 0.82 Activated Partial Thromboplast Time 28.1Sec (25.0-35.0) Hepatitis B Surface Antigen NEGATIVE (NEGATIVE) SHLOMO AZEVEDO MD Jun 16, 2017 14:01
== END 2017-06-16 13:30 | disposition home or self-care (01) ==
LOC: OBT 01:30 → L-D 01:30 → INTOOBSV 04:00 → OBT 04:00
PROVIDERS: ADMIT Obstetrics & Gynecology; ATTEND Obstetrics & Gynecology
DX: O47.1 False labor at or after 37 completed weeks of gestation (principal); Z3A.38 38 weeks gestation of pregnancy
CPT/HCPCS: 36415; 76818; 85025; 85610; 85730; 86592; 86900; 86901; 87340; 96360; J0290; J7120; Z7500; 99217; G0378; G0463

== ENCOUNTER 2017-06-26 02:04 | Inpatient (IN) | payer MEDICAID ==
[~2017-06-26] VITALS: Ht 152.4 cm; Wt 94.4 kg
[2017-06-26] MEDS ORDERED: PRENAT PO (02:11)
[2017-06-26 02:12] VITALS: Ht 152.4 cm; Wt 94.4 kg
[2017-06-26 02:29] VITALS: BP 125/67; PULSE 75; RESP 18
[2017-06-26] MEDS: LACTATED RINGER'S 1,000 ML IV SCH ×3 (03:00→14:56)
[2017-06-26] MEDS ORDERED: LIDOCAINE 1% (MPF) 30 ML INJ INJ PRN (03:00)
[2017-06-26] MEDS ORDERED: CARBOPROST 250 MCG INJ IM PRN ×2 (03:00→19:00)
[2017-06-26] MEDS ORDERED: METHYLERGONOVINE 0.2 MG INJ IM PRN ×2 (03:00→19:00)
[2017-06-26] MEDS ORDERED: BUTORPHANOL 2 MG INJ IV PRN (03:00)
[2017-06-26] MEDS ORDERED: LACTATED RINGER'S 1,000 ML IV PRN (03:00)
[2017-06-26] MEDS ORDERED: OXYTOCIN 30 UNITS/LR 500 ML IV PRN ×2 (03:00→19:00)
[2017-06-26] MEDS ORDERED: MISOPROSTOL 200 MCG TAB PR PRN ×2 (03:00→19:00)
[2017-06-26] MEDS ORDERED: OXYTOCIN 30 UNITS/LR 500 ML IV SCH ×3 (03:00→11:20)
--- NOTE | 2017-06-26 04:16 | TRIAGE ---
OB Triage Datetime Report Generated by CPN: 06/26/2017 04:16 Datetime: 06/26/2017 04:00 Labor Evaluation Frequency: 2-5 Monitor Mode: External Duration (sec)2399: 40-120 Quality: Mild Pattern: Normal: <= 5 Contractions in 10 Minutes Resting Tone [place]: Relaxed Heart Rate FHR Baseline Rate: 135 Monitor Mode: External US Variability: Moderate 6-25 bpm Accelerations: 15X15 Decelerations: None Category: Category I Datetime: 06/26/2017 03:07 Assessment Type: Admission Assessment Vaginal Bleeding: Normal Show Maternal Assessment Level of Consciousness: Fully Conscious DTR's/Clonus: DTRs 2+; No Clonus Headache: Denies Blurred Vision: No Respiratory Effort: Unlabored; Regular Rhythm; Equal Expansion Breath Sounds, Left: Clear and Equal Breath Sounds, Right: Clear and Equal Nausea/Vomiting: Denies RUQ Epigastric Pain: Denies Lower Extremities Edema: Bilateral Lower Extremities Degree: Pitting Upper Extremities Edema: None Degree: None Facial Edema: None Fall Risk Assessment History of Falling: (0) No Secondary Diagnosis: (0) No Ambulatory Aid: (0) Bedrest/Nurse Assist IV Therapy: (0) No Gait: (0) Normal/Bedrest/Immobile Mental Status: (0) Oriented to Own Ability Fall Score: 0 Fall Risk Score Definition: No Risk: No action required Pain Assessment Pain Scale: 8 Pain Presence: Intermittent Pain Type: Contraction Pain Location: Abdomen Pain Goal: 2 Membrane Status: Intact Datetime: 06/26/2017 02:59 Labor Evaluation Frequency: 1.5-6 Monitor Mode: External Duration (sec)2399: 50-110 Quality: Moderate Pattern: Normal: <= 5 Contractions in 10 Minutes Resting Tone [place]: Relaxed Heart Rate FHR Baseline Rate: 135 Monitor Mode: External US FHR Baseline Changes: No Baseline Change Variability: Moderate 6-25 bpm Accelerations: 15X15 Decelerations: None Category: Category I Datetime: 06/26/2017 02:26 Vaginal Exam Dilatation (cms): 4.0 Effacement (%): 60 Station: -3 Exam By: KOMAL Field Vaginal Bleeding: Scant Cervix, Consistency: Moderate Cervix, Position: Posterior Datetime: 06/26/2017 02:22 Stage of : OB Triage Assessment Type: Triage Maternal Assessment Level of Consciousness: Fully Conscious DTR's/Clonus: DTRs 2+; No Clonus Headache: Denies Blurred Vision: No Respiratory Effort: Unlabored; Regular Rhythm; Equal Expansion Breath Sounds, Left: Clear and Equal Breath Sounds, Right: Clear and Equal Nausea/Vomiting: Denies RUQ Epigastric Pain: Denies Lower Extremities Edema: Bilateral Lower Extremities Degree: Pitting Upper Extremities Edema: None Degree: None Facial Edema: None Temperature Route: Oral Fall Risk Assessment History of Falling: (0) No Secondary Diagnosis: (0) No Ambulatory Aid: (0) Bedrest/Nurse Assist IV Therapy: (0) No Gait: (0) Normal/Bedrest/Immobile Mental Status: (0) Oriented to Own Ability Fall Score: 0 Fall Risk Score Definition: No Risk: No action required Pain Assessment Pain Scale: 8 Pain Presence: Intermittent Pain Type: Cramping; Contraction Pain Location: Abdomen Pain Relief Measures: Comfort Measures Datetime: 06/26/2017 02:20 Stage of : OB Triage Monitor Mode: External Contraction Comments: [place] applied Heart Rate FHR Baseline Rate: 135 Monitor Mode: External US Comments: EFM applied Datetime: 06/26/2017 02:18 Time of Arrival: 06/26/2017 01:57 EGA: 40.2 Arrived By: Wheelchair Arrived From: Home Chief Complaint: UCs q5mins Movement: Present Contractions: Regular Time Contractions Began: 06/26/2017 00:00 Contractions: q5mins Rupture of Membranes: Denies Vaginal Bleeding: Small Vaginal Discharge: Present Abdominal Trauma: Not Applicable Patient Complaints: Contractions; Cramping Time Provider Notified: 06/26/2017 02:35 Provider Notified: Initial Plan: EFM x2, VE Datetime: 06/16/2017 12:54 Comments: PATIENT OFF MONITOR Datetime: 06/16/2017 12:37 Comments: TUNRED TO RIGHT Datetime: 06/16/2017 12:06 Vaginal Exam Dilatation (cms): 2.0 Effacement (%): 70 Station: -2 Exam By: Spike GONZALES Datetime: 06/16/2017 12:02 Stage of : Labor Monitor Mode: External Pattern: Normal: <= 5 Contractions in 10 Minutes Resting Tone [place]: Relaxed Heart Rate FHR Baseline Rate: 135 Monitor Mode: External US Variability: Moderate 6-25 bpm Accelerations: 15X15 Decelerations: None Category: Category I Pain Presence: None/Denies Pain Type: N/A Membrane Status: Intact Datetime: 06/16/2017 11:00 Stage of : Labor Monitor Mode: External Pattern: Normal: <= 5 Contractions in 10 Minutes Resting Tone [place]: Relaxed Monitor Mode: External US Comments: BACK ON MONITOR Pain Presence: None/Denies Pain Type: N/A Datetime: 06/16/2017 10:06 Stage of : Labor Monitor Mode: External Pattern: Normal: <= 5 Contractions in 10 Minutes Resting Tone [place]: Relaxed Heart Rate FHR Baseline Rate: 145 Monitor Mode: External US Variability: Moderate 6-25 bpm Accelerations: 15X15 Decelerations: None Category: Category I Pain Presence: None/Denies Pain Type: N/A Datetime: 06/16/2017 09:46 Vaginal Exam Dilatation (cms): 1.0 Effacement (%): 70 Station: -2 Exam By: DR. AZEVEDO Datetime: 06/16/2017 09:42 Stage of : Labor Labor Evaluation Frequency: 1-6 Monitor Mode: External Duration (sec)2399: 30-60 Pattern: Normal: <= 5 Contractions in 10 Minutes Resting Tone [place]: Relaxed Heart Rate FHR Baseline Rate: 145 Monitor Mode: External US Variability: Moderate 6-25 bpm Accelerations: 15X15 Decelerations: None Category: Category I Pain Presence: None/Denies Pain Type: N/A Membrane Status: Intact Datetime: 06/16/2017 08:31 Stage of : Labor Monitor Mode: External Pattern: Normal: <= 5 Contractions in 10 Minutes Resting Tone [place]: Relaxed Monitor Mode: External US Pain Presence: None/Denies Pain Type: N/A Membrane Status: Intact Datetime: 06/16/2017 07:26 Stage of : Labor Assessment Type: Ongoing Assessment Maternal Assessment Level of Consciousness: Fully Conscious DTR's/Clonus: DTRs 2+; No Clonus Headache: Denies Blurred Vision: No Respiratory Effort: Unlabored; Regular Rhythm; Equal Expansion Breath Sounds, Left: Clear and Equal Breath Sounds, Right: Clear and Equal Nausea/Vomiting: Denies RUQ Epigastric Pain: Denies Lower Extremities Edema: None Degree: None Upper Extremities Edema: None Degree: None Facial Edema: None Temperature Route: Oral Fall Risk Assessment History of Falling: (0) No Secondary Diagnosis: (0) No Ambulatory Aid: (0) Bedrest/Nurse Assist IV Therapy: (0) No Gait: (0) Normal/Bedrest/Immobile Mental Status: (0) Oriented to Own Ability Fall Score: 0 Fall Risk Score Definition: No Risk: No action required Labor Evaluation Frequency: OCCASSIONAL Monitor Mode: External Pattern: Normal: <= 5 Contractions in 10 Minutes Resting Tone [place]: Relaxed Heart Rate FHR Baseline Rate: 130 Monitor Mode: External [place] Variability: Moderate 6-25 bpm Accelerations: 15X15 Decelerations: None Pain Assessment Pain Scale: 0 Pain Presence: Intermittent Pain Type: Cramping Pain Location: Abdomen Pain Goal: 6 Pain Relief Measures: Comfort Measures Datetime: 06/16/2017 07:06 Monitor Mode: External [place] Datetime: 06/16/2017 07:00 Labor Evaluation Frequency: 2-5 Monitor Mode: External Duration (sec)2399: 50-120 Quality: Mild Pattern: Normal: <= 5 Contractions in 10 Minutes Resting Tone [place]: Relaxed Heart Rate FHR Baseline Rate: 135 Monitor Mode: External [place] Variability: Moderate 6-25 bpm Accelerations: 15X15 Datetime: 06/16/2017 06:00 Labor Evaluation Frequency: 2-6 Monitor Mode: External Duration (sec)2399: 60-120 Quality: Mild Pattern: Normal: <= 5 Contractions in 10 Minutes Resting Tone [place]: Relaxed Heart Rate FHR Baseline Rate: 125 Monitor Mode: External [place] Variability: Moderate 6-25 bpm Accelerations: 15X15 Decelerations: Late Category: Category II Datetime: 06/16/2017 05:24 Monitor Mode: External US Datetime: 06/16/2017 05:15 Monitor Mode: External US Datetime: 06/16/2017 05:03 Monitor Mode: External Monitor Mode: External US Datetime: 06/16/2017 05:00 Labor Evaluation Frequency: 1.5-5 Duration (sec)2399: 60-150 Quality: Mild Pattern: Normal: <= 5 Contractions in 10 Minutes Resting Tone [place]: Relaxed Heart Rate FHR Baseline Rate: 135 Monitor Mode: External US Variability: Moderate 6-25 bpm Accelerations: 15X15 Decelerations: Late Category: Category II Datetime: 06/16/2017 04:39 Stage of : Labor Assessment Type: Admission Assessment Vaginal Bleeding: None Maternal Assessment Level of Consciousness: Fully Conscious DTR's/Clonus: DTRs 2+; No Clonus Headache: Denies Blurred Vision: No Respiratory Effort: Unlabored; Regular Rhythm; Equal Expansion Breath Sounds, Left: Clear and Equal Breath Sounds, Right: Clear and Equal Nausea/Vomiting: Denies RUQ Epigastric Pain: Denies Lower Extremities Edema: Bilateral Lower Extremities Degree: 1+ Upper Extremities Edema: None Degree: None Facial Edema: None Fall Risk Assessment History of Falling: (0) No Secondary Diagnosis: (0) No Ambulatory Aid: (0) Bedrest/Nurse Assist IV Therapy: (0) No Gait: (0) Normal/Bedrest/Immobile Mental Status: (0) Oriented to Own Ability Fall Score: 0 Fall Risk Score Definition: No Risk: No action required Pain Assessment Pain Scale: 8 Pain Presence: Intermittent Pain Type: Contraction Pain Location: Abdomen Pain Goal: 2 Datetime: 06/16/2017 02:15 Labor Evaluation Frequency: 2-3 Monitor Mode: External Duration (sec)2399: 60-80 Quality: Mild Pattern: Normal: <= 5 Contractions in 10 Minutes Resting Tone [place]: Relaxed Heart Rate FHR Baseline Rate: 135 Monitor Mode: External US FHR Baseline Changes: No Baseline Change Variability: Moderate 6-25 bpm Accelerations: 15X15 Decelerations: None Category: Category I Datetime: 06/16/2017 01:51 Vaginal Exam Dilatation (cms): 0.0 Effacement (%): 0 Station: -4 Exam By: bety Vaginal Bleeding: None Cervix, Consistency: Soft Cervix, Position: Posterior Datetime: 06/16/2017 01:44 Assessment Type: Triage Maternal Assessment Level of Consciousness: Fully Conscious DTR's/Clonus: DTRs 2+; No Clonus Headache: Denies Blurred Vision: No Respiratory Effort: Unlabored; Regular Rhythm; Equal Expansion Breath Sounds, Left: Clear and Equal Breath Sounds, Right: Clear and Equal Nausea/Vomiting: Denies RUQ Epigastric Pain: Denies Facial Edema: None Fall Risk Assessment History of Falling: (0) No Secondary Diagnosis: (0) No Ambulatory Aid: (0) Bedrest/Nurse Assist IV Therapy: (0) No Gait: (0) Normal/Bedrest/Immobile Mental Status: (0) Oriented to Own Ability Fall Score: 0 Fall Risk Score Definition: No Risk: No action required Comment: PRESENTED TO TRIAGE TO R_O LABOR AND ROM. FAMILY AT BEDSIDE. CALL LIGHT WITHIN REACH. Datetime: 06/16/2017 01:41 Labor Evaluation Frequency: x1 Monitor Mode: External Duration (sec)2399: 100 Quality: Moderate Pattern: Normal: <= 5 Contractions in 10 Minutes Resting Tone [place]: Relaxed Heart Rate FHR Baseline Rate: 145 Monitor Mode: External US Datetime: 04/14/2017 06:35 Time of Arrival: 06/16/2017 01:43 EGA: 38.6 Arrived By: Ambulatory Arrived From: Home Chief Complaint: c_o uc's since 2199, leaking Movement: Present Contractions: Irregular Time Contractions Began: 06/15/2017 22:00 Rupture of Membranes: Unsure Vaginal Bleeding: None Vaginal Discharge: Denies Recent Sexual Intercouse: Denies Abdominal Trauma: Not Applicable Patient Complaints: Contractions Time Provider Notified: 06/16/2017 02:10 Provider Notified: Initial Plan: EFM, IV HYDRATION BPP, [place], IF UC'S SUBSIDES AND BPP WNL D_C TO HOME IF UC CONTINUES ADMIT TO L_D Datetime: 04/14/2017 03:24 EGA: 29.6 Datetime: 04/14/2017 03:20 Fall Score: 0 Fall Risk Score Definition: No Risk: No action required Datetime: 03/29/2017 23:51 EGA: 27.4 Fall Score: 0 Fall Risk Score Definition: No Risk: No action required Datetime: 03/29/2017 06:16 EGA: 27.4 Datetime: 03/29/2017 06:15 Fall Score: 0 Fall Risk Score Definition: No Risk: No action required Datetime: 03/07/2017 19:56 Fall Score: 0 Fall Risk Score Definition: No Risk: No action required Datetime: 03/07/2017 19:09 EGA: 24.3
[2017-06-26 04:30] LABS: BASOPHILS % 0.3 % (0.0-2.0); EOSINOPHILS # 0.1 10^3/ul (0.0-0.5); HEMATOCRIT 32.8 % (37.0-47.0); HEMOGLOBIN 10.9 g/dl (12.0-16.0); LYMPHOCYTES # 2.3 10^3/ul (0.8-2.9); MEAN CORPUSCULAR HGB CONC 33.2 g/dl (32.0-37.0); MEAN CORPUSCULAR VOLUME 81.2 fl (82.0-101.0); MEAN PLATELET VOLUME 11.5 fl (7.4-10.4); MONOCYTE # 0.6 10^3/ul (0.3-0.9); MONOCYTES % 4.7 % (0.0-11.0); NEUTROPHIL # 10.2 10^3/ul (1.6-7.5); NEUTROPHILS % 76.3 % (39.0-77.0); NUCLEATED RED BLOOD CELLS% 0.1 /100WBC (0.0-0.0); PLATELET COUNT 204 10^3/UL (140-415); RED BLOOD COUNT 4.04 10^6/ul (4.20-5.40); RED CELL DISTRIBUTION WIDTH 14.9 % (11.5-14.5); WHITE BLOOD COUNT 13.4 10^3/ul (4.8-10.8)
[2017-06-26 04:46] LABS: INR 0.89; PT RATIO 0.9
[2017-06-26] MEDS ORDERED: FENTAnyl 2MCG/ML-ROPIV 0.2% 100 ML ONE ×2 (06:54→07:19)
[2017-06-26] MEDS ORDERED: DIPHENHYDRAMINE 50 MG INJ IV PRN (07:30)
[2017-06-26] MEDS ORDERED: NALOXONE (0.4 MG/ML) INJ IV PRN (07:30)
[2017-06-26] MEDS ORDERED: ONDANSETRON 4 MG INJ IV PRN ×2 (07:30→19:00)
[2017-06-26] MEDS: FENTAnyl 2MCG/ML-ROPIV 0.2% 100 ML BAG EPI SCH ×2 (07:58→14:55)
--- NOTE | 2017-06-26 09:44 | RADRPT ---
PROCEDURE: US OB. CLINICAL INDICATION: Size and dates , contractions TECHNIQUE: Multiple sonographic images of the pelvis and gravid uterus were obtained. The images were reviewed on a PACS workstation. COMPARISON: 06/16/2017 FINDINGS: There is a single viable intrauterine gestation. Cardiac activity is present with 112 beats per min nitin. There is a vertex presentation. The placenta is anterior. There is no evidence for an abruption or placenta previa. Measurements were made in order to determine age. The results are as follows: BPD =8.6 cm HC =31.1 cm AC =32.3 cm FL =6.9 cm Estimated gestational age of approximately 35 weeks and 2 days based on ultrasound measurements. Clinical age: 40 weeks and 2 days. The estimated date of delivery is 07/29/2017, based on ultrasound measurements. The EFW = 2748 g, <3%, based on LMP age. RPTAT: AA IMPRESSION: Single viable intrauterine gestation of approximately 35 weeks and 2 days based on ultrasound measu rements. Smaller than clinical age by 5 weeks. bradycardia. .Kartik Longo MD, MD Date Time Electronically viewed and signed by .Kartik Longo MD, on 06/26/2017 09:43 .S/
[2017-06-26] MEDS: IBUPROFEN 600 MG TAB PO PRN (18:28)
--- NOTE | 2017-06-26 18:52 | LDN ---
Date/Time of Note Date/Time of Note DATE: 06/26/17 TIME: 18:38 Delivery Summary 2 para 1 at 40 weeks and 2 days of gestation Weeks of Gestation 40 weeks and 2 days of gestation Weight 7 lbs. 1 oz/ 3195 grams 9,9 EBL 150 cc Placenta Delivered: Spontaneously Meconium: none Episiotomy: No Anesthesia type: Epidural Estimated blood loss: 150 Sponge & Needle done & correct: Yes All needle counts correct: Yes Any foreign bodies felt in the: No Problems: Infant Delivery Information Sex Infant Sex: male Apgars 1 Minute: 9 5 Minute: 9 Suctioning Nose & mouth suctioned at rober: Yes Umbilical Cord Umbilical cord with: 3 Vessels Cord presentations: nuchal cord (x one) Cord Blood was obtained: Yes Copies To: CC: SHLOMO AZEVEDO MD, BAHAREH MD Jun 26, 2017 18:48
[2017-06-26] MEDS ORDERED: ACETAMINOPHEN 325 MG TAB PO PRN ×2 (19:00)
[2017-06-26] MEDS ORDERED: WITCH HAZEL/GLYCERIN PAD PR PRN (19:00)
[2017-06-26] MEDS ORDERED: BENZOCAINE 20% 56 ML SPRAY TOP PRN (19:00)
[2017-06-26] MEDS ORDERED: LANOLIN 7 GM TUBE TOP PRN (19:00)
[2017-06-26] MEDS ORDERED: SENNA/DOCUSATE NA (8.6MG/50MG) TAB PO PRN (19:00)
[2017-06-26] MEDS ORDERED: MAGNESIUM HYDROXIDE 30ML CUP PO PRN (19:00)
[2017-06-26] MEDS ORDERED: DIBUCAINE 1% 30 GM OINT PR PRN (19:00)
[2017-06-26 19:15] VITALS: BP 129/75; PULSE 75; RESP 20
[2017-06-26] MEDS: LACTATED RINGER'S 1,000 ML IV* SCH (21:52)
[2017-06-26] MEDS: OXYTOCIN 30 UNITS/LR 500 ML IV SCH ×2 (21:52→22:35)
[2017-06-27 00:30] VITALS: BP 132/73; PULSE 69; RESP 19
[2017-06-27] MEDS: IBUPROFEN 600 MG TAB PO PRN ×4 (02:02→23:10)
[2017-06-27] MEDS: LACTATED RINGER'S 1,000 ML IV* SCH (02:35)
[2017-06-27] MEDS: LACTATED RINGER'S 1,000 ML IV SCH (02:36)
[2017-06-27 04:45] VITALS: BP 108/64; PULSE 108; RESP 20
[2017-06-27 08:00] VITALS: BP 125/61; PULSE 84; RESP 18
[2017-06-27 09:06] LABS: BASOPHILS % 0.3 % (0.0-2.0); EOSINOPHILS # 0.1 10^3/ul (0.0-0.5); EOSINOPHILS % 0.9 % (0.0-7.0); HEMATOCRIT 31.1 % (37.0-47.0); LYMPHOCYTES # 2.6 10^3/ul (0.8-2.9); LYMPHOCYTES % 17.8 % (15.0-51.0); MEAN CORPUSCULAR HEMOGLOBIN 26.3 pg (29.0-33.0); MEAN CORPUSCULAR HGB CONC 32.2 g/dl (32.0-37.0); MEAN CORPUSCULAR VOLUME 81.8 fl (82.0-101.0); MEAN PLATELET VOLUME 11.1 fl (7.4-10.4); MONOCYTE # 0.6 10^3/ul (0.3-0.9); MONOCYTES % 3.8 % (0.0-11.0); NEUTROPHIL # 11.1 10^3/ul (1.6-7.5); NEUTROPHILS % 76.6 % (39.0-77.0); PLATELET COUNT 186 10^3/UL (140-415); RED CELL DISTRIBUTION WIDTH 15.5 % (11.5-14.5); WHITE BLOOD COUNT 14.4 10^3/ul (4.8-10.8)
[2017-06-27 16:10] VITALS: BP 109/55; PULSE 80; RESP 18
--- NOTE | 2017-06-27 18:18 | HP ---
Date/Time of Note Date/Time of Note DATE: 06/27/17 TIME: 18:17 OB - History Hx of Present Chief Complaint: contractions Estimated Due Date: Jun 24, 2017 : 2 Para: 1 Spontaneous : 0 Therapeutic : 0 Care: Good Care Ultrasounds: Normal mid trimester US Obstetrical Complications: None Medical Complications: None Past Family/Social History * Past Medical, Surgical, Family and Obstetric Histories reviewed from chart. GBS Status: Negative OB Admission Exam Vital Signs Vital Signs Vital Signs Date Time Temp Pulse Resp B/P Pulse Ox O2 Delivery O2 Flow Rate FiO2 06/27/17 16:10 98.5 80 18 109/55 Room Air Physical Exam HEENT: WNL Heart: Rhythm Normal Lungs: Clear, Equal Abdomen: WNL Extremities: Normal Reflexes: Normal Cervical Dilatation: 4cm Effacement: 50% Station: -2 Membranes: Intact Heart Rate: 130's Accelerations: Accelerations Present Decelerations: No Decelerations Varibility: Moderate Contractions on Admission: < 5 Minutes Apart Last 72 hours Lab Results CBC & BMP 06/26/17 02:55 06/27/17 08:42 OB Assessment/Plan Reason for admission: active labor Plan: Expectant Management LAURE SEWELL MD Jun 27, 2017 18:18
--- NOTE | 2017-06-27 18:20 | QN ---
Documentation Comment No complaint Afebrile VSS Fundus Firm Lochia scant PPD #1 Stable Continue present care. LAURE SEWELL MD Jun 27, 2017 18:20
--- NOTE | 2017-06-27 18:21 | DS ---
Date/Time of Note Date/Time of Note DATE: 06/27/17 TIME: 18:20 Obstetrical Discharge Record Final Diagnosis Final Diagnosis: Term delivered Vaginal Delivery Obstetrical Delivery: Spontaneous Condition on Discharge Physical Assessment Voiding: Yes Bowel Movement: Yes Breast: Soft, non-tender Fundus: Firm Calf Tenderness: No Patient Condition: Stable LAURE SEWELL MD Jun 27, 2017 18:21
[2017-06-27 20:44] VITALS: BP 124/72; PULSE 87; RESP 20
[2017-06-28 04:51] VITALS: BP 135/74; PULSE 85; RESP 20
[2017-06-28 07:30] VITALS: BP 122/65; PULSE 85; RESP 19
[2017-06-28] MEDS: IBUPROFEN 600 MG TAB PO PRN ×2 (11:19→17:17)
[2017-06-28 15:56] VITALS: BP 119/78; PULSE 95; RESP 19
== END 2017-06-28 18:00 | disposition home or self-care (01) | DRG 775 ==
LOC: OBT 02:04 → L-D 02:06 → OBT 03:04 → L-D 03:05 → PP1 18:46
PROVIDERS: ADMIT Obstetrics & Gynecology; ATTEND Obstetrics & Gynecology
PROC: 10E0XZZ Delivery of Products of Conception, External Approach (ICD-10-PCS; principal; 2017-06-26)
DX: O48.0 Post-term pregnancy (principal); O69.81X0 Labor and delivery complicated by cord around neck, without compression, not applicable or unspecified; Z37.0 Single live birth; Z3A.40 40 weeks gestation of pregnancy
CPT/HCPCS: 36415; 62319; 76815; 85025; 85610; 85730; 86592; 86900; 86901; 88307; G0463; J2590; J3010; J7120